=== PATIENT | male | born 1965 | race Two or more races ===

== ENCOUNTER 2022-03-22 16:51 | Emergency (ER) | payer OTHER ==
[~2022-03-22] VITALS: Ht 165.1 cm; Wt 55.8 kg
[~2022-03-22 16:51] MED LIST: AMOX1TAB5 PO; METRONIDAZOLE500 MG PO
[2022-03-22] MEDS ORDERED: AMLODIPINE-OLM1 EAC3 (17:38)
[2022-03-22] MEDS ORDERED: CHILDREN'S ASPI81 MG (17:39)
[2022-03-22] MEDS ORDERED: PENTOXIFYLLINE400 MG PO (17:39)
[2022-03-22] MEDS ORDERED: ZESTRIL20 MG (17:39)
== END 2022-03-22 18:12 | disposition home or self-care (01) ==
LOC: ER 16:51
DX: M79.675 Pain in left toe(s) (principal)

== ENCOUNTER 2022-08-10 08:58 | Outpatient (CLI) | payer OTHER ==
[~2022-08-10 08:58] MED LIST changes: +AMLODIPINE-OLM1 EAC3; +CHILDREN'S ASPI81 MG; +PENTOXIFYLLINE400 MG PO; +ZESTRIL20 MG
== END 2022-08-10 09:03 | disposition home or self-care (01) ==
LOC: MRI 08:58
PROVIDERS: ATTEND Internal Medicine
DX: M86.9 Osteomyelitis, unspecified (principal)
CPT/HCPCS: 73720